=== PATIENT | female | born 1980 | race Caucasian/White ===

== ENCOUNTER 2019-01-19 17:50 | Emergency (ER) | payer MEDICAID ==
[~2019-01-19] VITALS: Ht 157.5 cm; Wt 54.1 kg
[2019-01-19 17:52] VITALS: BP 132/80
[2019-01-19 18:24] LABS: CLARITY,URINE CLOUDY (Clear); COLOR,URINE YELLOW (Yellow); GLUCOSE, URINE NEGATIVE (Neg); KETONES,URINE 15 mg/dl (Neg); LEUKOCYTE ESTERASE ,URINE SMALL (Neg); NITRITES, URINE POSITIVE (Neg); OCCULT BLOOD,URINE LARGE (Neg); PH,URINE 6.5 (4.8-8.0); PROTEIN,URINE 100 mg/dl (Neg); UA COLLECTION TYPE CLN CATCH MIDSTREAM
[2019-01-19 18:25] LABS: URINE HCG NEGATIVE (NEG)
[2019-01-19] MEDS ORDERED: ondansetron 4mg rapidly disintigrating tab PO ONE (18:25)
[2019-01-19 18:31] LABS: MUCUS STRANDS MODERATE /LPF (Neg); SQUAMOUS EPITHELIAL CELL,UR MODERATE /LPF (FEW)
[2019-01-19 18:32] LABS: BACTERIA,URINE 1+ /HPF (Neg); RBC,URINE TNTC /HPF (0-2); WBC CLUMPS,URINE MODERATE /HPF (NEGATIVE); WBC,URINE TNTC /HPF (0-4)
[2019-01-19] MEDS ORDERED: PHEN-824 PO (18:51)
[2019-01-19] MEDS ORDERED: ONDA4TAB6 PO (18:51)
[2019-01-19] MEDS ORDERED: ALBU18HF2 INH (18:51)
== END 2019-01-19 18:54 | disposition home or self-care (01) ==
LOC: ER 17:50
DX: N10 Acute pyelonephritis (principal); F17.200 Nicotine dependence, unspecified, uncomplicated; Z88.5 Allergy status to narcotic agent
CPT/HCPCS: 81001; 81025; 87088; 99283

== ENCOUNTER 2019-03-21 20:52 | Emergency (ER) | payer MEDICAID ==
[~2019-03-21] VITALS: Ht 157.5 cm; Wt 56.4 kg
[~2019-03-21 20:52] MED LIST: ALBU18HF2 INH; ONDA4TAB6 PO; PHEN-824 PO
[2019-03-21 21:02] VITALS: BP 127/85
--- NOTE | 2019-03-21 21:25 | NUR ---
pt is resting quietly on [place], friend at bedside, resp even and unlabored, pt c/o "pressure" in throat off and on x1 year, waiting to be evaluated
[2019-03-21] MEDS ORDERED: acetaminophen 325mg tablet PO ONE (21:55)
[2019-03-21] MEDS ORDERED: CYCL-1 PO (22:00)
== END 2019-03-21 22:18 | disposition home or self-care (01) ==
LOC: ER 20:53
DX: R49.0 Dysphonia (principal); R07.0 Pain in throat; F41.9 Anxiety disorder, unspecified; F17.200 Nicotine dependence, unspecified, uncomplicated; Z88.5 Allergy status to narcotic agent; Z79.899 Other long term (current) drug therapy
CPT/HCPCS: 99283

== ENCOUNTER 2022-12-27 11:04 | Emergency (ER) | payer MEDICAID ==
[~2022-12-27] VITALS: Ht 157.5 cm; Wt 55.9 kg
[~2022-12-27 11:04] MED LIST changes: +CYCL-1 PO
[2022-12-27 11:45] LABS: BASOPHILS # (AUTO) 0.1 X10'3 (0-0.2); BASOPHILS % (AUTO) 1.2 % (0-1); EOSINOPHILS # (AUTO) 0.1 X10'3 (0-0.9); LYMPHOCYTES # (AUTO) 2.5 X10'3 (1.1-4.8); LYMPHOCYTES % (AUTO) 26.1 % (21-51); MEAN CORPUSCULAR HEMOGLOBIN 28.8 PG (27.0-31.0); MEAN CORPUSCULAR HGB CONC 33.3 g/dL (33.0-36.5); MEAN CORPUSCULAR VOLUME 86.5 FL (78-98); MEAN PLATELET VOLUME 9.2 FL (7.4-10.4); MONOCYTES # (AUTO) 0.6 X10'3 (0-0.9); MONOCYTES % (AUTO) 6.1 % (2-12); NEUTROPHILS # (AUTO) 6.2 X10'3 (1.8-7.7); NEUTROPHILS % (AUTO) 65.6 % (42-75); PLATELET COUNT 353 X10'3 (140-440); RED BLOOD COUNT 4.51 X10'6 (4.20-5.60); RED CELL DISTRIBUTION WIDTH 14.7 % (11.5-14.5); WHITE BLOOD COUNT 9.5 X10'3 (4.5-11.0)
[2022-12-27 12:00] LABS: ALANINE AMINOTRANSFERASE 15 U/L (12-78); ALBUMIN 3.5 G/DL (3.4-5.0); ALKALINE PHOSPHATASE 76 IU/L (46-116); ANION GAP 8 (8-16); ASPARTATE AMINO TRANSFERASE 9 U/L (10-37); BILIRUBIN,TOTAL 0.3 MG/DL (0.1-1.0); BLOOD UREA NITROGEN 10 MG/DL (7-18); BUN/CREATININE RATIO 16.9 (10.0-20.0); CALCIUM 8.6 MG/DL (8.5-10.1); CHLORIDE 104 MMOL/L (99-107); CREATININE 0.59 MG/DL (0.40-0.90); GLUCOSE 113 MG/DL (70-104); POTASSIUM 3.7 MMOL/L (3.5-5.1); SODIUM 136 MMOL/L (135-145); eGFR > 90 ML/MIN
[2022-12-27] MEDS ORDERED: ALPRAZolam 0.25mg tablet PO ONE (12:50)
--- NOTE | 2022-12-27 12:52 | NUR ---
Pt reporting anxiety, requesting 0.25 mg xanax. RN notified Dr. Card. Per TEMITOPE HAHN to order. RN ordered via [facility]. RN to administer.
[2022-12-27 13:48] VITALS: BP 117/77
== END 2022-12-27 14:18 | disposition home or self-care (01) ==
LOC: ER 11:04
DX: F41.9 Anxiety disorder, unspecified (principal); R07.89 Other chest pain; J44.9 Chronic obstructive pulmonary disease, unspecified; Z88.5 Allergy status to narcotic agent; Z79.899 Other long term (current) drug therapy
CPT/HCPCS: 36415; 71045; 80053; 83880; 84484; 85025; 93005; 99285

== ENCOUNTER 2023-07-05 18:55 | Emergency (ER) | payer MEDICAID ==
[~2023-07-05] VITALS: Ht 157.5 cm; Wt 53.6 kg
[~2023-07-05 18:55] MED LIST changes: -CYCL-1 PO; -ONDA4TAB6 PO
[2023-07-05 19:31] LABS: BASOPHILS # (AUTO) 0.2 X10'3 (0-0.2); BASOPHILS % (AUTO) 1.3 % (0-1); EOSINOPHILS # (AUTO) 0.3 X10'3 (0-0.9); EOSINOPHILS % (AUTO) 2.4 % (0-6); HEMATOCRIT 42.6 % (35.0-45.0); LYMPHOCYTES # (AUTO) 3.4 X10'3 (1.1-4.8); LYMPHOCYTES % (AUTO) 28.5 % (21-51); MEAN CORPUSCULAR HEMOGLOBIN 28.8 PG (27.0-31.0); MEAN CORPUSCULAR HGB CONC 32.9 g/dL (33.0-36.5); MEAN CORPUSCULAR VOLUME 87.5 FL (78-98); MEAN PLATELET VOLUME 9.8 FL (7.4-10.4); MONOCYTES # (AUTO) 0.9 X10'3 (0-0.9); MONOCYTES % (AUTO) 7.3 % (2-12); NEUTROPHILS # (AUTO) 7.3 X10'3 (1.8-7.7); NEUTROPHILS % (AUTO) 60.5 % (42-75); PLATELET COUNT 327 X10'3 (140-440); RED BLOOD COUNT 4.87 X10'6 (4.20-5.60); RED CELL DISTRIBUTION WIDTH 13.9 % (11.5-14.5)
[2023-07-05 19:34] LABS: ALANINE AMINOTRANSFERASE 15 U/L (12-78); ALBUMIN 3.7 G/DL (3.4-5.0); ALKALINE PHOSPHATASE 84 IU/L (46-116); ANION GAP 9 (8-16); ASPARTATE AMINO TRANSFERASE 13 U/L (10-37); BILIRUBIN,TOTAL 0.3 MG/DL (0.1-1.0); BLOOD UREA NITROGEN 14 MG/DL (7-18); BUN/CREATININE RATIO 17.9 (10.0-20.0); CHLORIDE 102 MMOL/L (99-107); CREATININE 0.78 MG/DL (0.40-0.90); GLUCOSE 92 MG/DL (70-104); POTASSIUM 3.7 MMOL/L (3.5-5.1); SODIUM 137 MMOL/L (135-145); TOTAL CARBON DIOXIDE 26.1 MMOL/L (24-32); TOTAL PROTEIN 7.4 G/DL (6.4-8.2); eCRCL 73 ML/MIN; eGFR 80 ML/MIN
[2023-07-05 19:42] LABS: PRO BRAIN NATRIURETIC PEPTIDE 53 PG/ML (0-125)
[2023-07-05 22:05] VITALS: BP 117/70; PULSE 55; RESP 16; TEMP 97.9; O2SAT 100
== END 2023-07-05 22:06 | disposition home or self-care (01) ==
LOC: ER 18:56
DX: F41.9 Anxiety disorder, unspecified (principal); M79.602 Pain in left arm
CPT/HCPCS: 36415; 71045; 80053; 83880; 84484; 85025; 93005; 99285

== ENCOUNTER → 2023-10-09 | Outpatient (CLI) | payer MEDICAID ==
[~2023-10-09] VITALS: Ht 160 cm; Wt 54.4 kg
[2023-10-09 15:27] VITALS: PULSE 83; RESP 18; O2SAT 97
[2023-10-09] MEDS: albuterol 2.5 MG/3 ML nebule NEB ONE (15:35)
== END | disposition home or self-care (01) ==
LOC: RT 14:31
PROVIDERS: ATTEND Family Medicine
DX: J44.9 Chronic obstructive pulmonary disease, unspecified (principal); F17.200 Nicotine dependence, unspecified, uncomplicated
CPT/HCPCS: 94060; 94760

== ENCOUNTER 2023-12-04 22:27 | Emergency (ER) | payer MEDICAID ==
[~2023-12-04] VITALS: Ht 157.5 cm; Wt 55.9 kg
[2023-12-05 00:15] LABS: HEMOGLOBIN 13.7 g/dl (12.0-16.0); RED CELL DISTRIBUTION WIDTH 13.4 % (11.5-14.5)
[2023-12-05 00:16] LABS: BASOPHILS # (AUTO) 0.1 X10'3 (0-0.2); EOSINOPHILS # (AUTO) 0.2 X10'3 (0-0.9); EOSINOPHILS % (AUTO) 1.5 % (0-6); HEMATOCRIT 39.9 % (35.0-45.0); LYMPHOCYTES % (AUTO) 36.1 % (21-51); MEAN CORPUSCULAR HEMOGLOBIN 29.8 PG (27.0-31.0); MEAN CORPUSCULAR HGB CONC 34.3 g/dL (33.0-36.5); MEAN CORPUSCULAR VOLUME 86.9 FL (78-98); MEAN PLATELET VOLUME 9.5 FL (7.4-10.4); MONOCYTES # (AUTO) 0.8 X10'3 (0-0.9); MONOCYTES % (AUTO) 7.4 % (2-12); NEUTROPHILS # (AUTO) 5.9 X10'3 (1.8-7.7); PLATELET COUNT 311 X10'3 (140-440)
[2023-12-05 00:29] LABS: ALANINE AMINOTRANSFERASE 21 U/L (12-78); ALBUMIN 3.9 G/DL (3.4-5.0); ALBUMIN/GLOBULIN RATIO 0.9 (1.1-1.5); ALKALINE PHOSPHATASE 59 IU/L (46-116); ANION GAP 10 (8-16); ASPARTATE AMINO TRANSFERASE 17 U/L (10-37); BILIRUBIN,TOTAL 0.7 MG/DL (0.1-1.0); BLOOD UREA NITROGEN 14 MG/DL (7-18); BUN/CREATININE RATIO 21.2 (10.0-20.0); CALCIUM 9.1 MG/DL (8.5-10.1); CHLORIDE 103 MMOL/L (99-107); CREATININE 0.66 MG/DL (0.40-0.90); GLUCOSE 98 MG/DL (70-104); POTASSIUM 3.5 MMOL/L (3.5-5.1); SODIUM 139 MMOL/L (135-145); TOTAL CARBON DIOXIDE 26.1 MMOL/L (24-32); TOTAL PROTEIN 8.3 G/DL (6.4-8.2); eCRCL 86 ML/MIN; eGFR > 90 ML/MIN
[2023-12-05 00:38] LABS: LIPASE 13 U/L (16-77)
[2023-12-05 00:39] LABS: BETA HCG,QUANTITATIVE < 1.0 mIU/ml
[2023-12-05] MEDS: mag hydrox/Alum hydrox/simeth 30ml oral suspension PO ONE (01:29)
[2023-12-05] MEDS: diatr meglu/diatrizoate 30ml oral sol.-(3 dose) bottle PO SCH (01:29)
[2023-12-05] MEDS: normal saline 1000ml 1,000 ML IV ONE (01:46)
[2023-12-05 02:05] LABS: BILIRUBIN,URINE NEGATIVE (Neg); CLARITY,URINE CLEAR (Clear); COLOR,URINE YELLOW (Yellow); GLUCOSE, URINE NEGATIVE (Neg); KETONES,URINE NEGATIVE (Neg); LEUKOCYTE ESTERASE ,URINE NEGATIVE (Neg); NITRITES, URINE NEGATIVE (Neg); OCCULT BLOOD,URINE NEGATIVE (Neg); PROTEIN,URINE NEGATIVE (Neg); UROBILINOGEN,URINE 0.2 E.U/dL (0.2-1.0)
[2023-12-05 02:10] LABS: UA COLLECTION TYPE CLN CATCH MIDSTREAM
[2023-12-05 02:29] LABS: URINE AMPHETAMINE SCREEN NEGATIVE (Neg); URINE BARBITUATE SCREEN NEGATIVE (Neg); URINE BENZODIAZEPINES SCREEN NEGATIVE (Neg); URINE CANNABINOID SCREEN NEGATIVE (Neg); URINE COCAINE SCREEN NEGATIVE (Neg); URINE METHADONE SCREEN NEGATIVE (Neg); URINE OPIATE SCREEN NEGATIVE (Neg); URINE PHENCYCLIDINE SCREEN NEGATIVE (Neg)
[2023-12-05] MEDS ORDERED: iohexol 300mg/ml 100ml inj. ONE (03:00)
[2023-12-05] MEDS: LIDOcaine 2% Viscous 15ml cup MM PRN (03:38)
[2023-12-05] MEDS ORDERED: TIOT4MIS3 INH (05:30)
[2023-12-05] MEDS ORDERED: ALPR0.5T2 PO (05:31)
[2023-12-05] MEDS: acetaminophen 325mg tablet PO ONE (05:44)
[2023-12-05] MEDS: piperacillin/tazo 4.5gm/100ml 100 ML IV SCH (05:49)
[2023-12-05] MEDS ORDERED: ALB0.5UD NEB (07:17)
[2023-12-05] MEDS ORDERED: magnesium Cl slow-release 64mg tablet PO PRN (07:30)
[2023-12-05] MEDS ORDERED: potassium Cl 20 mEq SR tablet PO PRN ×2 (07:30)
[2023-12-05] MEDS ORDERED: ondansetron/PF 4mg/2ml inj IV PRN (07:30)
[2023-12-05] MEDS ORDERED: mag hydrox/Alum hydrox/simeth 30ml oral suspension PO PRN (07:30)
[2023-12-05] MEDS ORDERED: magnesium hydroxide 30ml (MOM) UD suspension PO PRN (07:30)
[2023-12-05] MEDS ORDERED: potassium Cl 40MEQ/1/2NS 520ml 520 ML IV PRN (07:30)
[2023-12-05] MEDS ORDERED: magnesium 4gm in 100ml NS 100 ML IV PRN (07:30)
[2023-12-05] MEDS ORDERED: acetaminophen 325mg tablet PO PRN (07:30)
[2023-12-05] MEDS ORDERED: magnesium 2GM in 50ml NS 50 ML IV PRN (07:30)
[2023-12-05] MEDS ORDERED: normal saline 1000ml 1,000 ML IV SCH (07:30)
[2023-12-05] MEDS: K and/or MAG REPLACEMENT MC SCH (07:45)
[2023-12-05] MEDS: docusate sod 100mg capsule PO SCH (07:45)
[2023-12-05] MEDS ORDERED: AMOX-580 PO (08:04)
[2023-12-05] MEDS ORDERED: HYDR-3973 PO ×2 (08:04→08:20)
[2023-12-05 08:28] VITALS: BP 96/64; PULSE 60; RESP 14; TEMP 98.1; O2SAT 100
== END 2023-12-05 08:31 | disposition home or self-care (01) ==
LOC: ER 22:28 → ED HOLD 12-05 07:32 → UNDOADMIN 12-05 07:32 → UNDODISIN 12-05 08:28
DX: K80.50 Calculus of bile duct without cholangitis or cholecystitis without obstruction (principal); J44.9 Chronic obstructive pulmonary disease, unspecified; Z88.5 Allergy status to narcotic agent; Z79.899 Other long term (current) drug therapy; Z79.2 Long term (current) use of antibiotics
CPT/HCPCS: 36415; 74177; 76700; 80053; 80305; 81003; 83690; 84702; 85025; 96361; 96365; 96366; 99285; J2543; J3490; J7030; Q9963; Q9967; G0378

== ENCOUNTER 2024-03-27 12:20 | Emergency (ER) | payer MEDICAID ==
[~2024-03-27] VITALS: Ht 157.5 cm; Wt 56.4 kg
[~2024-03-27 12:20] MED LIST changes: +ALB0.5UD NEB; -ALBU18HF2 INH; +ALPR0.5T2 PO; +HYDR-3973 PO; -PHEN-824 PO; +TIOT4MIS3 INH
[2024-03-27 12:36] VITALS: PULSE 80; TEMP 99.2
[2024-03-27] MEDS ORDERED: AMOX-117 PO (14:22)
[2024-03-27 14:36] VITALS: RESP 16
== END 2024-03-27 14:37 | disposition home or self-care (01) ==
LOC: ER 12:21
DX: K04.7 Periapical abscess without sinus (principal); J44.9 Chronic obstructive pulmonary disease, unspecified; F41.9 Anxiety disorder, unspecified; Z88.5 Allergy status to narcotic agent; Z79.899 Other long term (current) drug therapy
CPT/HCPCS: 71045; 99283